=== PATIENT | female | born 1985 | race Caucasian/White ===

== ENCOUNTER 2017-06-15 18:21 | Inpatient (IN) | payer MEDICAID, OTHER ==
[2017-06-15] VITALS (62 sets, daily range): BP systolic 107–174; BP diastolic 55–95; PULSE 62–99; RESP 16–18; TEMP 98
[~2017-06-15] VITALS: Ht 152.4 cm; Wt 88.0 kg
[~2017-06-15 18:21] MED LIST: OXYC1SOL5 PO
--- NOTE | 2017-06-15 19:40 | PD ---
HPI Chief Complaint Contractions, headache, dizzy Date Seen: Jun 15, 2017 Time Seen: 19:36 Travel History International Travel<30 Days: No Contact w/Intl Traveler<30Days: No Known Affected Area: No History of Present Illness HPI 31 years old twin gestation at 32 weeks 1 day comes in complaining of contractions that occurred early this morning but has now resolved. She also had a headache this morning that also resolved and occasional vertigo today. Patient states that she was checked in the office with a transvaginal or transperineal ultrasound and the ultrasound documented that her cervix was open to 3 cm. This was not a cervical exam digitally. Patient had a normal antepartum course until 1 week ago when her blood pressure was elevated in the office and she performed a 24-hour urine protein and blood work as an outpatient that was turned in yesterday. Her headache resolved on its own without treatment. Weeks Gestation: 32 Para: 1 : 4 History Past Medical History Narrative Medical Hypothyroid Obstetric History Obstetric History section at term 2 years ago Past Surgical History Narrative Surgical Cholecystectomy Ovarian cystectomy section Family History Family History: Negative Social History Alcohol Use: No Tobacco Use: No Substance Abuse: No Allergies-Medications (Allergen,Severity, Reaction): Coded Allergies: No Known Allergies (Unverified , 06/20/15) Home Meds Active Scripts Oxycodone W/ Acetaminophen (Oxycodone/Acetaminophen 5-325 mg/5Ml) 5 mg/325 mg Tab, 2 TAB PO Q4H Y for PAIN SCALE 6 TO 10, #30 TAB Prov:Jeanie Saul MD 06/23/15 Review of Systems Except as stated in HPI: all other systems reviewed are Neg Physical Exam Narrative GENERAL: Well-nourished, well-developed patient. SKIN: Warm and dry. HEAD: Normocephalic and atraumatic. EYES: No scleral icterus. No injection or drainage. ENT: No nasal drainage noted. Mucous membranes pink. Airway patent. NECK: Supple, trachea midline. No JVD. CARDIOVASCULAR: Regular rate and rhythm without murmurs, gallops, or rubs. RESPIRATORY: Breath sounds equal bilaterally. No accessory muscle use. ABDOMEN/GI: Abdomen soft, non-tender, bowel sounds present, no rebound, no guarding Gravid to [40-] weeks size Fundal Height: [-] GENITOURINARY: External Genitalia: intact and normal in appearance BUS glands: [-] Normal Cervix: [-] Posterior Dilatation: [-] 1 Effacement: [-] Long Station: [-] High Presentation: [-] Vertex Membranes: [intact or ruptured] intact Uterine Contractions: [-] Occasional FHT's: Category: [-] 1 Baseline: [-] 135, 140 Reactive: [-] mod x 2 Variability: [-] mod x 2 Decels: [-]absent EXTREMITIES: 2+ LE edema BACK: Nontender without obvious deformity. No CVA tenderness. NEUROLOGICAL: Awake and alert. Motor and sensory grossly within normal limits. Five out of 5 muscle strength in all muscle groups. Normal speech. Data Data Vital Signs Reviewed: Yes Orders Orders Vital Signs (Adult) .ON ADMISSION (06/15/17 19:33) ^ Labor Status (06/15/17 19:33) Urinalysis - C+S If Indicated (06/15/17 19:33) ^ Non Stress Test (06/15/17 19:33) Diet Liquid (06/16/17 Breakfast) Cbc No Diff, Includes Plts (06/15/17 19:33) Comprehensive Metabolic Panel (06/15/17 19:33) Uric Acid (06/15/17 19:33) Protein Creat Ratio, Random Ur (06/15/17 19:33) MDM Medical Record Reviewed: Yes Plan 31-year-old who is at 32 weeks with twin gestation Continued observation and triage notes worsening blood pressure and labetalol was given 20 mg IV Patient will be brought in for treatment of hypertension, continued workup, betamethasone, ultrasound in the morning Dr. Montes was notified of the patient's admission Diagnosis Diagnosis: Primary Impression: 32 weeks gestation of Additional Impressions: Twin gestation in third trimester Elevated blood pressure affecting in third trimester, antepartum Previous section complicating , antepartum condition or complication Sherin Marshall MD Jun 15, 2017 19:40
[2017-06-15] MEDS ORDERED: LACTATED RINGER'S 1000 ML INJ 1,000 ML IV SCH (19:55)
[2017-06-15] MEDS ORDERED: LABETALOL HCL 100 MG/20 ML VIAL ONE (19:57)
[2017-06-15] MEDS ORDERED: ZOLPIDEM TARTRATE 5 MG TAB PO PRN ×2 (20:00)
[2017-06-15] MEDS ORDERED: BETAMETHASONE SOD PHOS/ACETATE SUSP 30 MG/5 ML VIAL IM SCH (20:00)
[2017-06-15] MEDS ORDERED: ACETAMINOPHEN 325 MG TAB PO PRN ×2 (20:00)
[2017-06-15] MEDS ORDERED: CALCIUM GLUCONATE 10% 1 GM/10 ML VIAL IV PUSH PRN ×3 (20:00→21:15)
[2017-06-15] MEDS ORDERED: ONDANSETRON HCL 4 MG/2 ML VIAL IV PUSH PRN ×2 (20:00)
[2017-06-15] MEDS ORDERED: NIFEdipine 10 MG CAP PO PRN (20:00)
[2017-06-15] MEDS ORDERED: SODIUM CHLORIDE 0.9% FLUSH 10 ML FLUSH IV FLUSH PRN ×4 (20:00→20:15)
[2017-06-15] MEDS ORDERED: ONDANSETRON ODT 4 MG TAB PO PRN (20:00)
[2017-06-15] MEDS ORDERED: LABETALOL HCL 100 MG/20 ML VIAL IV PUSH PRN ×3 (20:15→20:30)
[2017-06-15] MEDS: BETAMETHASONE SOD PHOS/ACETATE SUSP 30 MG/5 ML VIAL IM SCH (20:17)
[2017-06-15] MEDS ORDERED: MAGNESIUM SULFATE 40 GM PREMIX 1,000 ML ONE (20:35)
[2017-06-15] MEDS ORDERED: MAGNESIUM SULFATE 4 GM PREMIX 100 ML ONE (20:35)
[2017-06-15 20:36] LABS: HEMATOCRIT 32.4 % (35.0-46.0); HEMOGLOBIN 10.6 GM/DL (11.6-15.3); MEAN CELL VOLUME 79.7 FL (80.0-100.0); MEAN CORPUSCULAR HEMOGLOBIN 26.1 PG (27.0-34.0); MEAN CORPUSCULAR HGB CONC 32.7 % (32.0-36.0); MEAN PLATELET VOLUME 8.6 FL (7.0-11.0); PLATELET COUNT 272 TH/MM3 (150-450); RED BLOOD COUNT 4.06 MIL/MM3 (4.00-5.30); RED CELL DISTRIBUTION WIDTH 15.3 % (11.6-17.2)
[2017-06-15] MEDS: NIFEdipine 30 MG SUSTAINED RELEASE TAB PO SCH (20:38)
[2017-06-15 20:50] LABS: AMORPHOUS SEDIMENT, URINE RARE; BACTERIA, URINE RARE /hpf; BILIRUBIN, URINE NEG (NEG); BLOOD, URINE TRACE (NEG); GLUCOSE,URINE NEG (NEG); KETONE, URINE NEG (NEG); NITRITE,URINE NEG (NEG); PH, URINE 6.5 (5.0-8.5); SQUAMOUS EPITHELIAL CELL URINE 1 /hpf (0-5); URINE COLOR YELLOW (YELLW/STRAW); URINE LEUKOCYTE ESTERASE NEG (NEG)
[2017-06-15 20:57] LABS: ALBUMIN 2.2 GM/DL (3.4-5.0); ALT (GPT) 26 U/L (10-53); AST (GOT) 36 U/L (15-37); BICARBONATE 18.8 MEQ/L (21.0-32.0); BLOOD UREA NITROGEN 7 MG/DL (7-18); CALCIUM 7.6 MG/DL (8.5-10.1); CHLORIDE 110 MEQ/L (98-107); CREATININE 0.61 MG/DL (0.50-1.00); GLOMERULAR FILTRATION RATE 113 ML/MIN (>89); GLUCOSE,RANDOM 67 MG/DL (74-106); SODIUM (NA) 141 MEQ/L (136-145)
[2017-06-15 21:00] LABS: ALKALINE PHOSPHATASE 301 U/L (45-117); TOTAL BILIRUBIN ADULT 0.3 MG/DL (0.2-1.0); TOTAL PROTEIN 6.3 GM/DL (6.4-8.2)
[2017-06-15] MEDS: SODIUM CHLORIDE 0.9% FLUSH 10 ML FLUSH IV FLUSH SCH (21:00)
[2017-06-15] MEDS ORDERED: SODIUM CHLORIDE 0.9% FLUSH 10 ML FLUSH IV FLUSH SCH ×3 (21:00)
[2017-06-15] MEDS: INSULIN NovoLIN REGULAR SUPPLEMENTAL SCALE SQ SCH (21:00)
[2017-06-15] MEDS ORDERED: MAGNESIUM SULFATE 40 GM PREMIX 1,000 ML IV SCH (21:06)
[2017-06-15] MEDS ORDERED: PREN29TA PO (21:13)
[2017-06-15] MEDS ORDERED: LEVO.2 PO (21:14)
[2017-06-15] MEDS ORDERED: LEVOTHYROXINE SODIUM 200 MCG TAB PO SCH (21:15)
[2017-06-15] MEDS ORDERED: MAGNESIUM SULFATE 4 GM PREMIX 100 ML IV ONE (21:15)
--- NOTE | 2017-06-15 21:28 | HHI.PR ---
[employer] Note Note S: Patient feeling well, headache resolved, no changes in vision, some slight epigastric pressure, no pain, no nausea or vomiting, endorses movement, no contractions, vaginal bleeding or discharge. Patient denies any other known complications to her other than the below listed O: VS: BP current: 130/74, pulse 86, O2 sat 100% on RA Blood pressure range: 130-174/70-83 Exam: exam deferred, patellar DTRs 1+, no clonus bilaterally FHTs: A: 150s, moderate variability, accelerations present, no decelerations B: 150s, moderate variability, accelerations present, no decelerations TOCO: Occasional contraction A/P 31-year-old at 33w1d by stated IVF dating w/ [facility] of of 07/25/2017 admitted for new diagnosis of preeclampsia w/ severe features. 1. IVF Belinda twin gestation: Cat 1 tracing x2 - Continuous EFM and toco at this time - EFW (05/27) = A: 1627g (57%), B: 1697g (62%). Male x2, anterior and posterior placenta - Need records faxed tomorrow when office is open. NICU consulted 2. Preeclampsia with severe features: Based on severe blood pressures and P:C 13.95, HELLP labs WNL, repeat in AM - 24 urine started (pt states returned an outpatient collection yesterday) - s/p IV labetalol x1 and PO Procardia x1, begin Procardia XL 30mg qd, continue to trend BPs - s/p BMZ #1 for FLM, repeat in 24hrs - Begin Mag 4/2 for seizure ppx, no need for Silver unless urine output low, continue mag x 24hrs - Discussed with patient and her partner the plan is for admission and close observation until 34 weeks, they are aware that if she has persistent severe features will move toward delivery at that time. 3. h/o LTCS x1: in 2016 for arrest of descent: plan is for repeat , consented by myself in the room 4. Hypothyroidism: Patient states recently increased from 17 to 200 mcg around 2 weeks ago, continue home Synthroid, TFTs pending. 5. Failed 1hr GTT: Patient was unaware of this, no three-hour done, glucose on CMP normal, will check a.m. fasting and one-hour postprandials tomorrow, medium sliding scale ordered. Will d/c finger sticks if normal tmrw 6. Anemia: T&C x2 Deejay Montes MD Jun 15, 2017 21:28
[2017-06-15] MEDS ORDERED: LIDOCAINE 2% JELLY 5 ML TUBE OTHER PRN (22:30)
[2017-06-16] VITALS (48 sets, daily range): BP systolic 114–153; BP diastolic 64–86; PULSE 74–92; RESP 16–18; TEMP 97.7–98.2
[2017-06-16 05:55] LABS: BASOPHIL % 0.1 % (0.0-2.0); HEMATOCRIT 31.5 % (35.0-46.0); HEMOGLOBIN 10.3 GM/DL (11.6-15.3); LYMPH % 7.3 % (9.0-44.0); LYMPHOCYTE # 0.9 TH/MM3 (1.0-4.8); MEAN CELL VOLUME 79.8 FL (80.0-100.0); MEAN CORPUSCULAR HGB CONC 32.6 % (32.0-36.0); MEAN PLATELET VOLUME 8.2 FL (7.0-11.0); MONOCYTE # 0.1 TH/MM3 (0-0.9); NEUT % 91.6 % (16.0-70.0); PLATELET COUNT 258 TH/MM3 (150-450); RED BLOOD COUNT 3.95 MIL/MM3 (4.00-5.30); RED CELL DISTRIBUTION WIDTH 15.3 % (11.6-17.2)
[2017-06-16] MEDS ORDERED: LEVOTHYROXINE SODIUM 200 MCG TAB PO SCH (06:00)
[2017-06-16] MEDS ORDERED: LEVOTHYROXINE SODIUM 25 MCG TAB PO SCH (06:00)
[2017-06-16] MEDS: LEVOTHYROXINE SODIUM 200 MCG TAB PO SCH (06:10)
[2017-06-16 06:28] LABS: ALBUMIN 2.2 GM/DL (3.4-5.0); BICARBONATE 15.5 MEQ/L (21.0-32.0); CALCIUM 7.1 MG/DL (8.5-10.1); CALCIUM-PROTEIN CORRECTED 7.5 MG/DL (8.5-10.1); CREATININE 0.71 MG/DL (0.50-1.00); TOTAL BILIRUBIN ADULT 0.6 MG/DL (0.2-1.0); TOTAL PROTEIN 6.4 GM/DL (6.4-8.2)
[2017-06-16] MEDS: INSULIN NovoLIN REGULAR SUPPLEMENTAL SCALE SQ SCH ×2 (08:00→12:00)
[2017-06-16] MEDS: SODIUM CHLORIDE 0.9% FLUSH 10 ML FLUSH IV FLUSH SCH ×2 (08:01→21:00)
[2017-06-16] MEDS: NIFEdipine 30 MG SUSTAINED RELEASE TAB PO SCH (08:24)
[2017-06-16] MEDS: MULTIVIT/MIN/PREN/FOL AC/IRON PRENATAL TAB PO SCH (08:24)
[2017-06-16] MEDS: DOCUSATE SODIUM 100 MG CAP PO SCH (08:24)
--- NOTE | 2017-06-16 08:25 | PD.OB.ANTE ---
Subjective Interval History Hospital day 2 IVF di/di boys at 33 2/7 well known to me. Ongoing surveillance of mild increase in BPs ongoing prior to admission with 24 hour urine done earlier this week (results pending). BPs responded well to procardia po and IV labetolol. No contractions and tracings reassuring and c/w magnesium. No contractions. LFTs not worrisome; platelets fine and mild anemia noted recent increase in synthroid (3 weeks ago) but TSH > 8 and again bumped up last night to 225 mcg daily. repeat 24 hour urine for protein is ongoing. Objective Vital Signs Vital Signs Date Time Temp Pulse Resp B/P (MAP) Pulse Ox O2 Delivery O2 Flow Rate FiO2 06/16/17 08:00 79 116/72 (87) 06/16/17 07:00 88 119/78 (92) 06/16/17 06:17 16 06/16/17 06:17 98.2 06/16/17 06:00 84 117/76 (90) 06/16/17 05:00 81 120/76 (91) 06/16/17 04:20 92 06/16/17 04:15 85 06/16/17 04:10 82 06/16/17 04:05 83 06/16/17 04:01 76 129/75 (93) 06/16/17 04:00 79 06/16/17 03:55 82 06/16/17 03:50 83 06/16/17 03:04 16 06/16/17 03:03 98.1 06/16/17 03:00 91 127/78 (94) 06/16/17 02:01 80 127/73 (91) 06/16/17 01:15 16 06/16/17 01:01 86 125/71 (89) 06/16/17 00:55 18 06/16/17 00:41 79 142/82 (102) 06/16/17 00:40 83 06/16/17 00:38 82 145/86 (105) 06/16/17 00:35 90 06/16/17 00:30 82 06/16/17 00:25 86 06/16/17 00:20 86 06/16/17 00:16 131/85 (100) 06/16/17 00:16 82 06/16/17 00:15 83 06/16/17 00:10 81 06/16/17 00:05 80 06/16/17 00:00 79 06/16/17 00:00 79 153/86 (108) 06/15/17 23:55 83 06/15/17 23:50 74 06/15/17 23:46 98.0 77 18 140/79 (99) 06/15/17 23:45 78 06/15/17 23:40 76 06/15/17 23:35 74 06/15/17 23:31 79 138/74 (95) 06/15/17 23:30 78 06/15/17 23:25 72 06/15/17 23:20 76 06/15/17 23:16 78 142/77 (98) 06/15/17 23:15 77 06/15/17 23:10 81 06/15/17 23:05 79 06/15/17 23:04 78 151/84 (106) 06/15/17 23:00 79 06/15/17 23:00 85 156/95 (115) 06/15/17 22:55 85 06/15/17 22:50 76 06/15/17 22:45 74 06/15/17 22:45 18 06/15/17 22:40 80 06/15/17 22:35 79 06/15/17 22:31 80 135/71 (92) 06/15/17 22:30 80 06/15/17 22:25 82 06/15/17 22:20 84 06/15/17 22:16 80 131/73 (92) 06/15/17 22:15 80 06/15/17 22:10 82 06/15/17 22:05 80 06/15/17 22:01 79 127/71 (89) 06/15/17 22:00 82 06/15/17 22:00 16 06/15/17 21:55 82 06/15/17 21:50 84 06/15/17 21:46 84 120/71 (87) 06/15/17 21:45 83 06/15/17 21:40 85 06/15/17 21:35 88 06/15/17 21:33 89 125/68 (87) 06/15/17 21:31 89 107/55 (72) 06/15/17 21:30 92 06/15/17 21:25 121/68 (85) 06/15/17 21:25 88 06/15/17 21:25 92 06/15/17 21:20 94 06/15/17 21:20 113/59 (77) 06/15/17 21:20 93 06/15/17 21:15 91 06/15/17 21:15 93 116/67 (83) 06/15/17 21:10 99 119/68 (85) 06/15/17 21:10 96 06/15/17 21:09 98 112/62 (79) 06/15/17 21:05 94 06/15/17 21:01 91 130/74 (92) 06/15/17 21:00 18 06/15/17 21:00 84 06/15/17 20:55 69 06/15/17 20:54 68 174/86 (115) 06/15/17 20:31 62 167/81 (109) 06/15/17 20:25 68 166/77 (106) 06/15/17 20:24 16 06/15/17 20:21 62 169/76 (107) 06/15/17 20:11 63 154/70 (98) 06/15/17 20:01 67 160/79 (106) 06/15/17 20:00 18 06/15/17 19:46 63 166/83 (110) 06/15/17 19:29 72 158/82 (107) 06/15/17 19:25 68 06/15/17 19:20 71 06/15/17 19:16 68 151/75 (100) Intake & Output 06/16/17 06/16/17 07:00 19:00 Output Total 225 ml Balance -225 ml Output Urine Total 225 ml Lab & Micro Results Test 06/15/17 19:48 06/16/17 04:56 White Blood Count 10.0 TH/MM3 12.0 TH/MM3 Red Blood Count 4.06 MIL/MM3 3.95 MIL/MM3 Hemoglobin 10.6 GM/DL 10.3 GM/DL Hematocrit 32.4 % 31.5 % Mean Corpuscular Volume 79.7 FL 79.8 FL Mean Corpuscular Hemoglobin 26.1 PG 26.0 PG Mean Corpuscular Hemoglobin Concent 32.7 % 32.6 % Red Cell Distribution Width 15.3 % 15.3 % Platelet Count 272 TH/MM3 258 TH/MM3 Mean Platelet Volume 8.6 FL 8.2 FL Urine Color YELLOW Urine Turbidity HAZY Urine pH 6.5 Urine Specific [place] 1.013 Urine Protein 300 mg/dL Urine Glucose (UA) NEG mg/dL Urine Ketones NEG mg/dL Urine Occult Blood TRACE Urine Nitrite NEG Urine Bilirubin NEG Urine Urobilinogen LESS THAN 2.0 MG/DL Urine Leukocyte Esterase NEG Urine RBC 1 /hpf Urine WBC 2 /hpf Urine Squamous Epithelial Cells 1 /hpf Urine Amorphous Sediment RARE Urine Bacteria RARE /hpf Microscopic Urinalysis Comment CULT NOT INDICATED Urine Random Creatinine 58 MG/DL Urine Random Total Protein 809 MG/DL Urine Protein/Creatinine Ratio 13.95 Blood Urea Nitrogen 7 MG/DL 7 MG/DL Creatinine 0.61 MG/DL 0.71 MG/DL Random Glucose 67 MG/DL 112 MG/DL Total Protein 6.3 GM/DL 6.4 GM/DL Albumin 2.2 GM/DL 2.2 GM/DL Calcium Level 7.6 MG/DL 7.1 MG/DL Uric Acid 4.1 MG/DL Alkaline Phosphatase 301 U/L 310 U/L Aspartate Amino Transf (AST/SGOT) 36 U/L 55 U/L Alanine Aminotransferase (ALT/SGPT) 26 U/L 39 U/L Total Bilirubin 0.3 MG/DL 0.6 MG/DL Sodium Level 141 MEQ/L 137 MEQ/L Potassium Level 3.9 MEQ/L 3.6 MEQ/L Chloride Level 110 MEQ/L 107 MEQ/L Carbon Dioxide Level 18.8 MEQ/L 15.5 MEQ/L Anion Gap 12 MEQ/L 15 MEQ/L Estimat Glomerular Filtration Rate 113 ML/MIN 95 ML/MIN Thyroid Stimulating Hormone 3rd Gen 8.940 uIU/ML Urine Opiates Screen NEG Urine Barbiturates Screen NEG Urine Amphetamines Screen NEG Urine Benzodiazepines Screen NEG Urine Cocaine Screen NEG Urine Cannabinoids Screen NEG Neutrophils (%) (Auto) 91.6 % Lymphocytes (%) (Auto) 7.3 % Monocytes (%) (Auto) 1.0 % Eosinophils (%) (Auto) 0.0 % Basophils (%) (Auto) 0.1 % Neutrophils # (Auto) 11.0 TH/MM3 Lymphocytes # (Auto) 0.9 TH/MM3 Monocytes # (Auto) 0.1 TH/MM3 Eosinophils # (Auto) 0.0 TH/MM3 Basophils # (Auto) 0.0 TH/MM3 CBC Comment DIFF FINAL Differential Comment Protein Corrected Calcium 7.5 MG/DL Physical Exam GENERAL: Well-nourished, well-developed patient. CARDIOVASCULAR: Regular rate and rhythm without murmurs, gallops, or rubs. RESPIRATORY: Breath sounds equal bilaterally. No accessory muscle use. ABDOMEN/GI: Abdomen soft, non-tender. fundal height 40 strips somewhat flat due to Mag with no decels EXTREMITIES: No cyanosis but 2+ edema and normoreflexic, non-tender, without signs of DVT. Assessment and Plan Assessment and Plan will decrease Mag to 1 gm per hour and stop tomorrow continue procardia 30 xl daily stop IV labetolol increase activity maintain strict I's and )'s daily iron sequentials stool softener FBS and 2 hour post prandial is fine. Will consider section after neuroprotection and steroids complete Jeanie Saul MD Jun 16, 2017 08:25
[2017-06-16] MEDS: CALCIUM CARBONATE 1.25 GM (CA 500 MG) TAB PO SCH ×2 (10:50→21:00)
[2017-06-16 12:33] LABS: HEMATOCRIT 30.4 % (35.0-46.0); MEAN CELL VOLUME 79.6 FL (80.0-100.0); MEAN CORPUSCULAR HEMOGLOBIN 26.2 PG (27.0-34.0); MEAN CORPUSCULAR HGB CONC 32.9 % (32.0-36.0); PLATELET COUNT 243 TH/MM3 (150-450); RED BLOOD COUNT 3.82 MIL/MM3 (4.00-5.30); RED CELL DISTRIBUTION WIDTH 15.5 % (11.6-17.2); WHITE BLOOD COUNT 9.5 TH/MM3 (4.0-11.0)
[2017-06-16 13:37] LABS: ALBUMIN 2.1 GM/DL (3.4-5.0); BICARBONATE 19.4 MEQ/L (21.0-32.0); CALCIUM 6.7 MG/DL (8.5-10.1); CREATININE 0.65 MG/DL (0.50-1.00); MAGNESIUM 6.5 MG/DL (1.5-2.5); TOTAL BILIRUBIN ADULT 0.5 MG/DL (0.2-1.0); TOTAL PROTEIN 6.3 GM/DL (6.4-8.2)
[2017-06-16 13:51] LABS: CALCIUM-PROTEIN CORRECTED 7.1 MG/DL (8.5-10.1)
--- NOTE | 2017-06-16 15:02 | HHI.PCNN ---
Addendum Remarks Consult Maternal Hx: 31y/o, , female at 33.2 weeks gestation with diagnosis of severe pre- eclampsia. Mother admitted to [facility] on 06/15/17 secondary to contractions with recent h/o headache and vertigo. No recent ultrasound reports available at this time. Maternal risk factors/complications: Hypothyroidism with escalating dose of synthroid Failed 1h GTT, no 3h follow up testing evaluation in progress. Maternal Labs: Blood type: O+ Lab results have been requested from OB office. Maternal Medications: BMS (first dose given 06/15 at 1999) Levothyroxine Magnesium sulfate Procardia PNV Social: Marital status: Discussion: Dr. Carlton met with MOB and FOB to discuss potential delivery secondary to pre-eclampsia. Delivery room management and possible requirement of respiratory support to include CPAP and possible intubation were discussed. Mom is receiving a BMS course. Apnea/Bradycardia spells were explained. The need for IV access and IVF were addressed. Mom desires to breastfeed and was encouraged to start pumping as soon as possible after delivery. Parents were informed that infant will not need antibiotics given that delivery will be for maternal indications. Criteria for oral feeding was discussed and developmental aspects of suck/swallow/breathe coordination. Parents verbalized understanding. . Greater than 50% of the consultation time was spent with the patient. Tessa Braun Jun 16, 2017 15:02
[2017-06-16] MEDS: BETAMETHASONE SOD PHOS/ACETATE SUSP 30 MG/5 ML VIAL IM SCH (20:00)
[2017-06-17] VITALS (35 sets, daily range): BP systolic 121–161; BP diastolic 67–90; PULSE 58–87; RESP 18–20; TEMP 97.5–97.9; O2SAT 99–100
[2017-06-17 00:02] LABS: CREATININE 24 HOUR, URINE 1.05 GM/24HR (0.63-2.50)
[2017-06-17] MEDS: LEVOTHYROXINE SODIUM 200 MCG TAB PO SCH (06:00)
[2017-06-17 07:29] LABS: AUTOMATED NEUTROPHIL # 7.5 TH/MM3 (1.8-7.7); BASOPHIL % 0.2 % (0.0-2.0); HEMATOCRIT 29.1 % (35.0-46.0); HEMOGLOBIN 9.6 GM/DL (11.6-15.3); LYMPH % 10.7 % (9.0-44.0); LYMPHOCYTE # 0.9 TH/MM3 (1.0-4.8); MEAN CELL VOLUME 79.7 FL (80.0-100.0); MEAN CORPUSCULAR HEMOGLOBIN 26.2 PG (27.0-34.0); MEAN CORPUSCULAR HGB CONC 32.8 % (32.0-36.0); MEAN PLATELET VOLUME 8.3 FL (7.0-11.0); MONO % 3.1 % (0.0-8.0); MONOCYTE # 0.3 TH/MM3 (0-0.9); PLATELET COUNT 214 TH/MM3 (150-450); RED BLOOD COUNT 3.65 MIL/MM3 (4.00-5.30); RED CELL DISTRIBUTION WIDTH 15.5 % (11.6-17.2); WHITE BLOOD COUNT 8.8 TH/MM3 (4.0-11.0)
[2017-06-17 07:42] LABS: ALBUMIN 2.1 GM/DL (3.4-5.0); DIRECT BILIRUBIN ADULT 0.1 MG/DL (0.0-0.2)
[2017-06-17 07:45] LABS: INDIRECT BILIRUBIN 0.2 MG/DL (0.0-0.8); TOTAL BILIRUBIN ADULT 0.3 MG/DL (0.2-1.0)
--- NOTE | 2017-06-17 07:54 | PD.OB.ANTE ---
Subjective Interval History Quiet night with no headache, nausea, vomiting, vision changes, RUQT. Good movement x 2 No leaking, bleeding or regular contractions Objective Vital Signs Vital Signs Date Time Temp Pulse Resp B/P (MAP) Pulse Ox O2 Delivery O2 Flow Rate FiO2 06/17/17 07:20 18 06/17/17 07:01 67 133/69 (90) 06/17/17 06:01 66 132/87 (102) 06/17/17 05:01 71 121/76 (91) 06/17/17 04:01 74 129/80 (96) 06/17/17 03:01 76 134/79 (97) 06/17/17 02:01 69 135/73 (93) 06/17/17 01:01 78 127/67 (87) 06/17/17 00:01 72 133/77 (95) 06/16/17 23:01 76 126/65 (85) 06/16/17 22:01 76 124/72 (89) 06/16/17 21:10 80 114/64 (81) 06/16/17 20:01 79 119/71 (87) 06/16/17 19:55 98.0 18 06/16/17 19:16 88 121/68 (85) 06/16/17 18:00 83 129/74 (92) 06/16/17 17:01 77 121/68 (85) 06/16/17 16:00 84 130/75 (93) 06/16/17 15:01 75 121/76 (91) 06/16/17 14:12 78 125/78 (94) 06/16/17 12:01 74 126/74 (91) 06/16/17 11:55 97.7 06/16/17 11:55 17 06/16/17 11:17 81 130/78 (95) 06/16/17 10:00 75 118/72 (87) 06/16/17 09:00 75 121/71 (88) 06/16/17 08:00 79 116/72 (87) Lab & Micro Results Test 06/16/17 12:05 06/16/17 19:48 06/17/17 05:48 White Blood Count 9.5 TH/MM3 Red Blood Count 3.82 MIL/MM3 Hemoglobin 10.0 GM/DL Hematocrit 30.4 % Mean Corpuscular Volume 79.6 FL Mean Corpuscular Hemoglobin 26.2 PG Mean Corpuscular Hemoglobin Concent 32.9 % Red Cell Distribution Width 15.5 % Platelet Count 243 TH/MM3 Mean Platelet Volume 8.0 FL Blood Urea Nitrogen 7 MG/DL Creatinine 0.65 MG/DL Random Glucose 116 MG/DL Total Protein 6.3 GM/DL 6.0 GM/DL Albumin 2.1 GM/DL 2.1 GM/DL Calcium Level 6.7 MG/DL Magnesium Level 6.5 MG/DL Alkaline Phosphatase 288 U/L 259 U/L Aspartate Amino Transf (AST/SGOT) 43 U/L 31 U/L Alanine Aminotransferase (ALT/SGPT) 37 U/L 36 U/L Total Bilirubin 0.5 MG/DL 0.3 MG/DL Sodium Level 138 MEQ/L Potassium Level 4.0 MEQ/L Chloride Level 108 MEQ/L Carbon Dioxide Level 19.4 MEQ/L Anion Gap 11 MEQ/L Estimat Glomerular Filtration Rate 105 ML/MIN Protein Corrected Calcium 7.1 MG/DL Urine Total Volume 24 Hours 2400 ML Urine Creatinine 24 Hour 1.05 GM/24HR Urine Total Protein 24 Hour 4577 MG/24HR Uric Acid 5.0 MG/DL Direct Bilirubin 0.1 MG/DL Indirect Bilirubin 0.2 MG/DL Physical Exam GENERAL: Well-nourished, well-developed patient. CARDIOVASCULAR: Regular rate and rhythm without murmurs, gallops, or rubs. RESPIRATORY: Breath sounds equal bilaterally. No accessory muscle use. ABDOMEN/GI: Abdomen soft, non-tender. FUndus 40 cervix report as 3 cm with twin A breech Category 1 strip x 2 LFTs, platelets normal 24 hour ruine nephrotic range at 4500 mg in 24 ours EXTREMITIES: No cyanosis 3+ pitting edema non-tender, without signs of DVT. Assessment and Plan Assessment and Plan will decrease Mag to 1 gm per hour and stop tomorrow continue procardia 30 xl daily stop IV labetolol increase activity maintain strict I's and )'s daily iron sequentials stool softener FBS and 2 hour post prandial is fine. Will consider section after neuroprotection and steroids complete 06/17/13 7:30 am with the new criteria for pre eclampsia with severe features excluding proteinuria, Blaise does not yet meet the "severe features criteria" clinically both mom and babies appear stable. risk of cord prolapse with dilated cervix and twin A breech expected progression BP elevation and when meets 160 systolic and/or 110 diastolic, or when she complaints of symptoms as above, will proceed with repeat section. close monitoring with no more Mg or procardia and wait for declaration. This has been discussed in detail with blaise and the pros and cons of delivery now vs conservative management reviewed. She is happywith current plan and recognizes change could occur quickly. continue regular diet for now Jeanie Saul MD Jun 17, 2017 07:54
[2017-06-17 08:49] LABS: BANDS 1 % (0-6); CORRECTED NUCLEATED RBC 1 /100 WBC (0-0); LYMPHOCYTES 8 % (9-44); METAMYELOCYTES 1 % (0-1); MONOCYTES 3 % (0-8); NEUTROPHIL # MANUAL DIFF 7.8 TH/MM3 (1.8-7.7); NUCLEATED RED BLOOD CELL 1 (0-0); POLYS (SEG NEUTROPHILS) 87 % (16-70)
[2017-06-17] MEDS: SODIUM CHLORIDE 0.9% FLUSH 10 ML FLUSH IV FLUSH SCH (09:00)
[2017-06-17] MEDS: MULTIVIT/MIN/PREN/FOL AC/IRON PRENATAL TAB PO SCH (09:00)
[2017-06-17] MEDS: POLYETHYLENE GLYCOL 17 GM PKG PO SCH (09:00)
[2017-06-17] MEDS: CALCIUM CARBONATE 1.25 GM (CA 500 MG) TAB PO SCH ×3 (09:00→22:59)
[2017-06-17] MEDS: DOCUSATE SODIUM 100 MG CAP PO SCH ×3 (09:00→21:00)
[2017-06-17] MEDS ORDERED: ONDANSETRON HCL 4 MG/2 ML VIAL IV ONE (12:00)
[2017-06-17] MEDS ORDERED: DEXAMETHASONE SOD PHOS 4 MG/ML VIAL IV ONE (12:00)
[2017-06-17] MEDS ORDERED: OXYTOCIN 10 UNIT/ML AMP IV ONE (12:00)
[2017-06-17] MEDS ORDERED: LACTATED RINGER'S 1000 ML INJ 1,000 ML IV ONE (12:00)
[2017-06-17] MEDS ORDERED: NEOSTIGMINE 3 MG/3 ML SYR IV ONE (12:00)
--- NOTE | 2017-06-17 17:06 | PD.PN.STU ---
Subjective Remarks 31 yo at 33 weeks 3 days with twins by IVF, hospitalization Day 3. Since noon she has noticed increased bilateral leg swelling and pain, right greater than left. Describes legs as feeling heavy with swelling to above the knees. Feet have been swollen throughout . No erythema, warmth, negative Don sign. Denies nausea/vomiting, headache, contractions, bleeding. Reports good movement. Objective Vitals Vital Signs Date Time Temp Pulse Resp B/P (MAP) Pulse Ox O2 Delivery O2 Flow Rate FiO2 06/17/17 14:21 18 06/17/17 14:09 80 137/76 (96) 06/17/17 11:00 18 06/17/17 10:14 79 133/80 (97) 06/17/17 09:00 18 06/17/17 08:01 67 133/84 (100) 06/17/17 07:46 97.9 06/17/17 07:20 18 06/17/17 07:01 67 133/69 (90) 06/17/17 06:01 66 132/87 (102) 06/17/17 05:01 71 121/76 (91) 06/17/17 04:01 74 129/80 (96) 06/17/17 03:01 76 134/79 (97) 06/17/17 02:01 69 135/73 (93) 06/17/17 01:01 78 127/67 (87) 06/17/17 00:01 72 133/77 (95) 06/16/17 23:01 76 126/65 (85) 06/16/17 22:01 76 124/72 (89) 06/16/17 21:10 80 114/64 (81) 06/16/17 20:01 79 119/71 (87) 06/16/17 19:55 98.0 18 06/16/17 19:16 88 121/68 (85) 06/16/17 18:00 83 129/74 (92) 06/16/17 17:01 77 121/68 (85) I/O 06/16/17 06/16/17 06/16/17 06/17/17 06/17/17 06/17/17 07:00 15:00 23:00 07:00 15:00 23:00 Output Total 225 ml Balance -225 ml Output Urine Total 225 ml Result Diagram: 4/12/18 0548 06/16/17 1205 Other Results GENERAL: Well-nourished, well-developed patient. CARDIOVASCULAR: Regular rate and rhythm without murmurs, gallops, or rubs. RESPIRATORY: Breath sounds equal bilaterally. No accessory muscle use. ABDOMEN/GI: Abdomen soft, non-tender. Fundus: [-] GENITOURINARY: External Genitalia: intact and normal in appearance Cervix: [-] Dilatation: [-] Effacement: [-] Station: [-] Presentation: [-] Membranes: [-] Uterine Contractions: [-] FHT's: Category: [-] Baseline: [-] Reactive: [-] Variability: [-] Decels: [-] EXTREMITIES: 2+bilateral edema from feet to mid thighs. A/P Assessment and Plan 31yo at 33weeks 3 days 1. Third trimester 2. Twin by IVF 3. Bilateral leg edema, right greater than left 4. History of elevated blood pressures 5. Proteinuria--nephrotic levels 6. Anemia Hilda Jones Jun 17, 2017 17:06 Jeanie Saul MD Jun 17, 2017 19:38
[2017-06-17] MEDS ORDERED: CITRIC ACID-SODIUM CITRATE LIQ 30 ML UDC ONE (18:12)
[2017-06-17] MEDS ORDERED: ACETAMINOPHEN 1000 MG/100 ML 100 ML IV ONE ×2 (18:17→19:45)
[2017-06-17] MEDS ORDERED: MORPHINE SULFATE PF 5 MG/10 ML VIAL ONE ×2 (18:17→18:18)
[2017-06-17] MEDS ORDERED: CLINDAMYCIN PHOS 600 MG/4 ML VIAL ONE (18:17)
--- NOTE | 2017-06-17 18:28 | PD.OB.ANTE ---
Subjective Interval History This afternoon developed right abdominal and pelvic pain with radiation down right thigh which is now swollen more so than left. increasing nausea. mild headache Antepartum ROS: Denies: New complaints, Loss of fluid, Vaginal bleeding, movement normal, Contractions, Other Objective Vital Signs Vital Signs Date Time Temp Pulse Resp B/P (MAP) Pulse Ox O2 Delivery O2 Flow Rate FiO2 06/17/17 17:56 97.9 18 06/17/17 17:55 81 06/17/17 17:50 81 06/17/17 17:45 78 06/17/17 17:40 85 06/17/17 17:35 82 06/17/17 17:31 85 148/76 (100) 06/17/17 17:30 86 06/17/17 17:25 78 153/76 (101) 06/17/17 17:25 87 06/17/17 17:22 80 155/80 (105) 06/17/17 17:20 80 06/17/17 17:18 85 161/90 (113) 06/17/17 16:50 72 160/82 (108) 06/17/17 14:21 18 06/17/17 14:09 80 137/76 (96) 06/17/17 11:00 18 06/17/17 10:14 79 133/80 (97) 06/17/17 09:00 18 06/17/17 08:01 67 133/84 (100) 06/17/17 07:46 97.9 06/17/17 07:20 18 06/17/17 07:01 67 133/69 (90) 06/17/17 06:01 66 132/87 (102) 06/17/17 05:01 71 121/76 (91) 06/17/17 04:01 74 129/80 (96) 06/17/17 03:01 76 134/79 (97) 06/17/17 02:01 69 135/73 (93) 06/17/17 01:01 78 127/67 (87) 06/17/17 00:01 72 133/77 (95) 06/16/17 23:01 76 126/65 (85) 06/16/17 22:01 76 124/72 (89) 06/16/17 21:10 80 114/64 (81) 06/16/17 20:01 79 119/71 (87) 06/16/17 19:55 98.0 18 06/16/17 19:16 88 121/68 (85) Lab & Micro Results Test 06/16/17 19:48 06/17/17 05:48 Urine Total Volume 24 Hours 2400 ML Urine Creatinine 24 Hour 1.05 GM/24HR Urine Total Protein 24 Hour 4577 MG/24HR White Blood Count 8.8 TH/MM3 Red Blood Count 3.65 MIL/MM3 Hemoglobin 9.6 GM/DL Hematocrit 29.1 % Mean Corpuscular Volume 79.7 FL Mean Corpuscular Hemoglobin 26.2 PG Mean Corpuscular Hemoglobin Concent 32.8 % Red Cell Distribution Width 15.5 % Platelet Count 214 TH/MM3 Mean Platelet Volume 8.3 FL Neutrophils (%) (Auto) 86.0 % Lymphocytes (%) (Auto) 10.7 % Monocytes (%) (Auto) 3.1 % Eosinophils (%) (Auto) 0.0 % Basophils (%) (Auto) 0.2 % Neutrophils # (Auto) 7.5 TH/MM3 Lymphocytes # (Auto) 0.9 TH/MM3 Monocytes # (Auto) 0.3 TH/MM3 Eosinophils # (Auto) 0.0 TH/MM3 Basophils # (Auto) 0.0 TH/MM3 CBC Comment AUTO DIFF Differential Total Cells Counted 100 Neutrophils % (Manual) 87 % Band Neutrophils % 1 % Lymphocytes % 8 % Monocytes % 3 % Neutrophils # (Manual) 7.8 TH/MM3 Metamyelocytes 1 % Nucleated Red Blood Cells 1 /100 WBC Differential Comment FINAL DIFF MANUAL Platelet Estimate NORMAL Platelet Morphology Comment NORMAL Uric Acid 5.0 MG/DL Total Bilirubin 0.3 MG/DL Direct Bilirubin 0.1 MG/DL Indirect Bilirubin 0.2 MG/DL Aspartate Amino Transf (AST/SGOT) 31 U/L Alanine Aminotransferase (ALT/SGPT) 36 U/L Alkaline Phosphatase 259 U/L Total Protein 6.0 GM/DL Albumin 2.1 GM/DL Physical Exam GENERAL: Looking anxious and ill systolic 160 diastolic 82 CARDIOVASCULAR: Regular rate and rhythm without murmurs, gallops, or rubs. RESPIRATORY: Breath sounds equal bilaterally. No accessory muscle use. ABDOMEN/GI: Abdomen soft, non-tender. Fundus: 41 babies reactive with accelerations EXTREMITIES increasing edema Assessment and Plan Assessment and Plan will decrease Mag to 1 gm per hour and stop tomorrow continue procardia 30 xl daily stop IV labetolol increase activity maintain strict I's and )'s daily iron sequentials stool softener FBS and 2 hour post prandial is fine. Will consider section after neuroprotection and steroids complete 06/17/13 7:30 am with the new criteria for pre eclampsia with severe features excluding proteinuria, Blaise does not yet meet the "severe features criteria" clinically both mom and babies appear stable. risk of cord prolapse with dilated cervix and twin A breech expected progression BP elevation and when meets 160 systolic and/or 110 diastolic, or when she complaints of symptoms as above, will proceed with repeat section. close monitoring with no more Mg or procardia and wait for declaration. This has been discussed in detail with blaise and the pros and cons of delivery now vs conservative management reviewed. She is happywith current plan and recognizes change could occur quickly. continue regular diet for now 06/17/17 6:30 meets criteria for pre eclampsia with severe features surveillance reassuring platelets normal babies breech and transverse received labatelol per protocol with diastolic of 160 ate 3 1/2 hours ago-- anethesia aware. discussed with neonatology and once here will section all aware Jeanie Saul MD Jun 17, 2017 18:28
[2017-06-17] MEDS ORDERED: CITRIC ACID-SODIUM CITRATE LIQ 30 ML UDC PO SCH (18:30)
[2017-06-17] MEDS ORDERED: CLINDAMYCIN 600 MG/NS 100 ML IV SCH ×2 (18:30)
[2017-06-17] MEDS ORDERED: LACTATED RINGER'S 1000 ML IV SCH (18:30)
[2017-06-17] MEDS ORDERED: LACTATED RINGER'S 1000 ML IV ONE (18:30)
[2017-06-17] MEDS ORDERED: LABETALOL HCL 100 MG/20 ML VIAL IV ONE (18:45)
[2017-06-17] MEDS ORDERED: EPIDURAL-NO SYSTEMIC NARCOTICS PRN (19:00)
[2017-06-17] MEDS ORDERED: EPIDURAL-DIPHENHYDRAMINE HCL 50 MG/ML VIAL IV PUSH PRN (19:00)
[2017-06-17] MEDS ORDERED: EPIDURAL-DO NOT ADMINISTER ANTICOAGULANTS PRN (19:00)
[2017-06-17] MEDS ORDERED: EPIDURAL-DIPHENHYDRAMINE HCL 50 MG CAP PO PRN (19:00)
[2017-06-17] MEDS ORDERED: EPIDURAL-NALOXONE HCL 0.4 MG/ML AMP IV PUSH PRN (19:00)
--- NOTE | 2017-06-17 19:40 | PD.OB.DELI ---
Procedure Note Section Procedure Pre Op Diagnosis: (1) Twin gestation in third trimester (2) Elevated blood pressure affecting in third trimester, antepartum (3) Previous section complicating , antepartum condition or complication Post Op Diagnosis: (1) delivery due to previous difficult delivery, delivered, current hospitalization Performed by Jeanie Saul Procedure: Repeat Low Transverse Sec Indication for delivery: Maternal medical problems Informed consent obtained: For anesthesia, For procedure Confirmed correct: Patient, Procedure, Site, Time-out taken Anesthesia: Spinal Medication prior to procedure: As documented in eMAR Monitoring during procedure: Blood pressure monitoring, doppler, Pulse oximetry Urinary catheter: Inserted using sterile technique, To dependent drainage Sterile preparation: Duraprep, In usual fashion, With 2% chlorexidine ( Hibiclens) Position: Supine with wedge to right side Operative Features Skin Incision: Pfannenstiel Uterine Incision: Low transverse w/knife / blunt ext Membranes Ruptured: Artificially Presentation: Breech, Transverse lie Delivery date: Jun 17, 2017 Delivery time: 19:39 Delivery of infant: Assisted : Male, Multiple One Minute : 7, 8 Five Minute : 8, 9 Status of infant: Viable, Cord blood, Nursery present Placenta delivered: Intact Medications: Antibiotics, Oxytocin Estimated blood loss: 500 Maternal Condition: Stable Condition: Stable (dictated) Jeanie Saul MD Jun 17, 2017 19:40
[2017-06-17] MEDS ORDERED: OXYTOCIN 30 UNITS-500ML PREMIX 500 ML IV ONE (19:45)
[2017-06-17] MEDS ORDERED: DOCUSATE SODIUM 50 MG/SENNA 8.6 MG TAB PO PRN (19:45)
[2017-06-17] MEDS ORDERED: ONDANSETRON HCL 4 MG/2 ML VIAL IV PUSH PRN (19:45)
[2017-06-17] MEDS ORDERED: SODIUM CHLORIDE 0.9% FLUSH 10 ML FLUSH IV FLUSH PRN (19:45)
[2017-06-17] MEDS ORDERED: ZOLPIDEM TARTRATE 5 MG TAB PO PRN (19:45)
[2017-06-17] MEDS ORDERED: oxyCODONE/ACETAMINOPHEN 5 MG/325 MG TAB PO PRN (19:45)
[2017-06-17] MEDS ORDERED: SIMETHICONE 80 MG CHEWABLE TAB PO PRN (19:45)
--- NOTE | 2017-06-17 20:32 | MP ---
cc: Jeanie Saul MD DATE OF OPERATION: PREOPERATIVE DIAGNOSES: A 33 and 5/7 weeks twin intrauterine with preeclampsia with severe features, previous section. POSTOPERATIVE DIAGNOSES: A 33 and 5/7 weeks twin intrauterine with preeclampsia with severe features, previous section. PROCEDURE PERFORMED: Repeat low transverse segment section. ANESTHESIA: Spinal with Duramorph. SURGEON: Jenaie Saul MD MATTRESS RENOVATOR: Hilda Jones, MS3 FINDINGS: Ioana had nephrotic levels of protein at 4500 grams, a systolic blood pressure of 160, headache and right-sided pain. She was appraised of the indications for delivery. DESCRIPTION OF PROCEDURE: She was taken to the operating room. She was administered spinal with Duramorph confirming normal platelets first she was prepped and draped in the usual sterile fashion. A timeout was performed with all in attendance. She had received clindamycin 600 mg. She had a Silver catheter and sequential stockings. After assuring adequate analgesia, a Pfannenstiel incision was made through the skin with a knife and then carried down through with a knife to the rectus muscle. The rectus muscle was taken off the rectus fascia superiorly and inferiorly sharply and with cautery. The midline was entered sharply where the rectus muscle was scarred together and then the parietal peritoneum was entered sharply with care to avoid underlying structures. A bladder blade was placed to protect the bladder. The uterus was palpated. The first baby was felt to be a complete breech and a low transverse incision was made and the feet were gently grasped and the baby was rotated to sacrum anterior with the classic Pinard maneuvers to bring the arms to the midline. The 's head was extended, and the nuchal cord x 1, so some manipulation was necessary to bring him out gently. His Apgars were 7 at one and 8 at five and he had an excellent cry and good tone on the abdomen. Cord clamping was delayed 45 seconds and then he was handed to the talent manager and attending. The second baby was then palpated with the intact sac, noted to be transverse lie with small parts down. The sac was ruptured and the head spontaneously came down so with fundal pressure the was delivered from cephalic position and again his cord was clamped after 45 second delay, cut, and he was handed to the neonatology team in attending. His Apgars were 8 and 9. The placenta was then delivered manually intact with 2 cords each with 3 vessels. It will be sent to ____ for harvesting. The uterus was gently exteriorized, cleaned with a lap sponge and without any significant bleeding. It was closed with chromic in a running interlocking fashion and then a second horizontal imbricating layer well above the bladder. Tubes and ovaries appeared unremarkable and it is not apparent what the primary source of infertility is. After the second layer, hemostasis was assessed and the uterus was placed in the abdominal cavity, and copious irrigation was performed. The rectus muscle was reapproximated gently with Vicryl. The fascia was closed, then with 1 Vicryl in a running fashion. The subcutaneous layer was closed with 3-0 plain and the skin was closed with 4-0 Vicryl on a Eber needle. Sponge, instrument and needle counts correct. Mom and babies tolerated the procedure well. Jeanie Saul MD PPC/rt , 07:45 PM , 08:31 PM
[2017-06-17] MEDS ORDERED: SODIUM CHLORIDE 0.9% FLUSH 10 ML FLUSH IV FLUSH SCH (21:00)
[2017-06-17] MEDS: INSULIN NovoLIN REGULAR SUPPLEMENTAL SCALE SQ SCH (21:00)
[2017-06-17] MEDS ORDERED: IRON SUCROSE INJ 200 MG in SODIUM CHLORIDE 0.9% INJ 100 ML IV ONE (21:00)
[2017-06-18 00:22] VITALS: BP 173/83; PULSE 62; RESP 18; TEMP 97.8
[2017-06-18] MEDS ORDERED: LACTATED RINGER'S 1000 ML INJ 1,000 ML IV SCH (00:45)
[2017-06-18] MEDS ORDERED: OXYTOCIN 30 UNITS-500ML PREMIX 500 ML IV PRN (00:45)
[2017-06-18] MEDS: ACETAMINOPHEN 1000 MG/100 ML 100 ML IV SCH ×2 (03:00→10:15)
[2017-06-18 03:53] VITALS: BP 157/83; PULSE 53; RESP 18; TEMP 97.8
[2017-06-18 05:57] LABS: AUTOMATED NEUTROPHIL # 13.1 TH/MM3 (1.8-7.7); BASOPHIL % 0.1 % (0.0-2.0); HEMATOCRIT 28.9 % (35.0-46.0); HEMOGLOBIN 9.3 GM/DL (11.6-15.3); LYMPH % 8.1 % (9.0-44.0); LYMPHOCYTE # 1.3 TH/MM3 (1.0-4.8); MEAN CORPUSCULAR HGB CONC 32.1 % (32.0-36.0); MEAN PLATELET VOLUME 8.6 FL (7.0-11.0); MONO % 6.5 % (0.0-8.0); NEUT % 85.3 % (16.0-70.0); PLATELET COUNT 189 TH/MM3 (150-450); RED BLOOD COUNT 3.57 MIL/MM3 (4.00-5.30); RED CELL DISTRIBUTION WIDTH 15.2 % (11.6-17.2); WHITE BLOOD COUNT 15.4 TH/MM3 (4.0-11.0)
[2017-06-18] MEDS: LEVOTHYROXINE SODIUM 100 MCG TAB PO SCH (06:04)
[2017-06-18] MEDS: LEVOTHYROXINE SODIUM 25 MCG TAB PO SCH (06:04)
[2017-06-18 06:24] LABS: ALBUMIN 1.9 GM/DL (3.4-5.0); ALT (GPT) 35 U/L (10-53); AST (GOT) 32 U/L (15-37); DIRECT BILIRUBIN ADULT 0.1 MG/DL (0.0-0.2)
[2017-06-18 06:26] LABS: ALKALINE PHOSPHATASE 230 U/L (45-117); TOTAL BILIRUBIN ADULT 0.1 MG/DL (0.2-1.0); TOTAL PROTEIN 5.4 GM/DL (6.4-8.2)
--- NOTE | 2017-06-18 07:26 | HHI.OB ---
Subjective Post Operative Day: 1 Remarks doing very well with no complaints received venofir Objective Vitals/I&O Vital Signs Date Time Temp Pulse Resp B/P (MAP) Pulse Ox O2 Delivery O2 Flow Rate FiO2 06/18/17 03:53 97.8 53 18 157/83 (107) 06/18/17 00:22 97.8 62 18 173/83 (113) 06/17/17 21:50 97.5 65 18 157/85 (109) 06/17/17 20:34 58 18 99 06/17/17 20:34 146/74 (98) 06/17/17 20:15 63 18 138/74 (95) 100 06/17/17 20:11 58 134/69 (90) 06/17/17 20:11 18 100 06/17/17 19:53 68 131/77 (95) 06/17/17 19:53 18 100 06/17/17 19:30 97.7 75 20 121/71 (88) 100 06/17/17 17:56 97.9 18 06/17/17 17:55 81 06/17/17 17:50 81 06/17/17 17:45 78 06/17/17 17:40 85 06/17/17 17:35 82 06/17/17 17:31 85 148/76 (100) 06/17/17 17:30 86 06/17/17 17:25 78 153/76 (101) 06/17/17 17:25 87 06/17/17 17:22 80 155/80 (105) 06/17/17 17:20 80 06/17/17 17:18 85 161/90 (113) 06/17/17 16:50 72 160/82 (108) 06/17/17 14:21 18 06/17/17 14:09 80 137/76 (96) 06/17/17 11:00 18 06/17/17 10:14 79 133/80 (97) 06/17/17 09:00 18 06/17/17 08:01 67 133/84 (100) 06/17/17 07:46 97.9 Result Diagram: 06/18/17 3035 06/16/17 1207 Objective Remarks GENERAL: Well-nourished, well-developed patient. CARDIOVASCULAR: Regular rate and rhythm without murmurs, gallops, or rubs. RESPIRATORY: Breath sounds equal bilaterally. No accessory muscle use. ABDOMEN/GI: Abdomen soft, non-tender, bowel sounds present. Incision: Clean, dry and intact. Fundus: Firm, non-tender at umbilicus. GENITOURINARY: Light to moderate bleeding. EXTREMITIES: No cyanosis or edema, non-tender, without signs of DVT. Medications and IVs Current Medications Medications (Trade) Dose Ordered Sig/Kiran Route Start Time Stop Time Status Last Admin (Stuartnatal Plus 3 ) 1 tab DAILY PO 06/16/17 09:00 06/17/17 09:00 (Trandate Inj) 40 mg NOW PRN IV PUSH 06/15/17 20:15 (Trandate Inj) 80 mg NOW PRN IV PUSH 06/15/17 20:30 (Tylenol) 650 mg Q4H PRN PO 06/15/17 20:00 (Zofran Odt) 4 mg Q6H PRN PO 06/15/17 20:00 (NovoLIN R SUPPLEMENTAL SCALE) 1 ACHS SLIDING SCALE SQ 06/15/17 21:00 (Calcium Gluconate Inj) 1 gm UNSCH PRN IV PUSH 06/15/17 21:15 (Xylocaine 2% Jelly) 1 applic UNSCH PRN OTHER 06/15/17 22:30 (Oscal) 500 mg Q12HR PO 06/16/17 09:00 06/17/17 22:59 (Colace) 100 mg BID PO 06/17/17 09:00 (Miralax) 17 gm DAILY PO 06/17/17 09:00 (Bicitra Liq) 30 ml COIN MACHINE SERVICE REPAIRER PO 06/17/17 18:30 06/20/17 18:29 Clindamycin Phosphate 600 mg/ Sodium Chloride 104 ml @ 208 mls/hr COIN MACHINE SERVICE REPAIRER IV 06/17/17 18:30 Lactated Ringer's 1,000 ml @ 100 mls/hr Q10H IV 06/18/17 00:45 06/18/17 20:44 06/17/17 22:59 Oxytocin 500 ml @ 100 mls/hr UNSCH X1 PRN IV 06/18/17 00:45 06/19/17 00:44 (NS Flush) 2 ml BID IV FLUSH 06/17/17 21:00 (NS Flush) 2 ml UNSCH PRN IV FLUSH 06/17/17 19:45 (Mylicon Chew) 80 mg QID PRN PO 06/17/17 19:45 (Motrin) 600 mg Q6H PRN PO 06/17/17 19:45 (Percocet 5-325 Mg) 1 tab Q4H PRN PO 06/17/17 19:45 (Percocet 5-325 Mg) 2 tab Q4H PRN PO 06/17/17 19:45 (Rachelle-Colace) 2 tab Q12H PRN PO 06/17/17 19:45 (Ambien) 5 mg HS PRN PO 06/17/17 19:45 (M-M-R Ii Inj) 0.5 ml ONCE ONCE SQ 06/18/17 16:00 06/18/17 16:01 (Boostrix Inj) 0.5 ml ONCE ONCE IM 06/18/17 16:00 06/18/17 16:01 (Zofran Inj) 4 mg Q6H PRN IV PUSH 06/17/17 19:45 Miscellaneous Information NO SYSTEMIC NARCOTICS TO BE GIVEN FO... UNSCH PRN .XX 06/17/17 19:00 06/18/17 18:59 (Narcan Inj) 0.4 mg UNSCH PRN IV PUSH 06/17/17 19:00 06/18/17 18:59 (Benadryl Inj) 25 mg Q6H PRN IV PUSH 06/17/17 19:00 06/18/17 18:59 06/18/17 00:17 (Benadryl) 50 mg Q6H PRN PO 06/17/17 19:00 06/18/17 18:59 Miscellaneous Information ALL NURSING DEPARTMENTS UNSCH PRN .XX 06/17/17 19:00 06/18/17 18:59 Acetaminophen 100 ml @ 400 mls/hr Q8H IV 06/18/17 03:00 06/18/17 11:14 06/18/17 03:00 (Synthroid) 200 mcg DAILY@0600 PO 06/18/17 06:00 06/18/17 06:04 (Synthroid) 25 mcg DAILY@0600 PO 06/18/17 06:00 06/18/17 06:04 Assessment/Plan Assessment and Plan will decrease Mag to 1 gm per hour and stop tomorrow continue procardia 30 xl daily stop IV labetolol increase activity maintain strict I's and )'s daily iron sequentials stool softener FBS and 2 hour post prandial is fine. Will consider section after neuroprotection and steroids complete 06/17/13 7:30 am with the new criteria for pre eclampsia with severe features excluding proteinuria, Blaise does not yet meet the "severe features criteria" clinically both mom and babies appear stable. risk of cord prolapse with dilated cervix and twin A breech expected progression BP elevation and when meets 160 systolic and/or 110 diastolic, or when she complaints of symptoms as above, will proceed with repeat section. close monitoring with no more Mg or procardia and wait for declaration. This has been discussed in detail with blaise and the pros and cons of delivery now vs conservative management reviewed. She is happywith current plan and recognizes change could occur quickly. continue regular diet for now 06/17/17 6:30 meets criteria for pre eclampsia with severe features surveillance reassuring platelets normal babies breech and transverse received labatelol per protocol with diastolic of 160 ate 3 1/2 hours ago-- anethesia aware. discussed with neonatology and once here will section all aware POD 1 received venofir ambulating and doing well solucortef for itching from duramorph not helped with Jeanie Yuan MD Jun 18, 2017 07:26
[2017-06-18] MEDS ORDERED: HYDROCORTISONE SOD SUCCINATE 100 MG VIAL IV PUSH ONE (07:30)
[2017-06-18 07:49] LABS: BANDS 2 % (0-6); CORRECTED NUCLEATED RBC 3 /100 WBC (0-0); LYMPHOCYTES 2 % (9-44); METAMYELOCYTES 2 % (0-1); MONOCYTES 3 % (0-8); NEUTROPHIL # MANUAL DIFF 14.6 TH/MM3 (1.8-7.7); NUCLEATED RED BLOOD CELL 3 (0-0); POLYS (SEG NEUTROPHILS) 91 % (16-70)
[2017-06-18 08:00] VITALS: BP 158/87; PULSE 50; RESP 20; TEMP 97.8
[2017-06-18] MEDS: INSULIN NovoLIN REGULAR SUPPLEMENTAL SCALE SQ SCH ×3 (08:00→17:00)
[2017-06-18] MEDS: POLYETHYLENE GLYCOL 17 GM PKG PO SCH (09:57)
[2017-06-18] MEDS: DOCUSATE SODIUM 100 MG CAP PO SCH ×2 (09:58→21:06)
[2017-06-18] MEDS: MULTIVIT/MIN/PREN/FOL AC/IRON PRENATAL TAB PO SCH (09:58)
[2017-06-18] MEDS: CALCIUM CARBONATE 1.25 GM (CA 500 MG) TAB PO SCH ×2 (09:58→21:06)
[2017-06-18 12:00] VITALS: BP 144/85; PULSE 74; RESP 20; TEMP 98
[2017-06-18] MEDS: IBUPROFEN 600 MG TAB PO PRN ×2 (12:56→21:06)
[2017-06-18 16:00] VITALS: BP 151/72; PULSE 64; RESP 18; TEMP 97.8
[2017-06-18] MEDS ORDERED: DIPHTH/TETANUS/ACEL PERTUSSIS (BOOSTER) 0.5 ML VIAL/PFS IM ONE (16:00)
[2017-06-18] MEDS ORDERED: MEASLES, MUMPS, RUBELLA VACCINE 0.5 ML VIAL SQ ONE (16:00)
[2017-06-18 16:06] LABS: HEMOGLOBIN A1C 5.4 % (4.3-6.0)
[2017-06-18 20:00] VITALS: BP 156/82; PULSE 73; RESP 18; TEMP 98.2
[2017-06-18] MEDS: oxyCODONE/ACETAMINOPHEN 5 MG/325 MG TAB PO PRN (23:23)
[2017-06-19] VITALS (9 sets, daily range): BP systolic 133–157; BP diastolic 69–97; PULSE 16–96; RESP 16–18; TEMP 97.8–98.3
[2017-06-19] MEDS: IBUPROFEN 600 MG TAB PO PRN ×3 (05:45→21:15)
[2017-06-19] MEDS: LEVOTHYROXINE SODIUM 100 MCG TAB PO SCH (05:45)
[2017-06-19] MEDS: LEVOTHYROXINE SODIUM 25 MCG TAB PO SCH (05:46)
[2017-06-19] MEDS: INSULIN NovoLIN REGULAR SUPPLEMENTAL SCALE SQ SCH ×4 (08:00→21:00)
[2017-06-19] MEDS: POLYETHYLENE GLYCOL 17 GM PKG PO SCH (08:32)
[2017-06-19] MEDS: CALCIUM CARBONATE 1.25 GM (CA 500 MG) TAB PO SCH ×2 (08:32→21:15)
[2017-06-19] MEDS: DOCUSATE SODIUM 100 MG CAP PO SCH ×2 (08:32→21:15)
[2017-06-19] MEDS: MULTIVIT/MIN/PREN/FOL AC/IRON PRENATAL TAB PO SCH (08:32)
--- NOTE | 2017-06-19 16:26 | HHI.OB ---
Subjective Post Operative Day: 2 Remarks Doing well Tolerating diet well Pain is well controlled Baby is doing well. Objective Vitals/I&O Vital Signs Date Time Temp Pulse Resp B/P (MAP) Pulse Ox O2 Delivery O2 Flow Rate FiO2 06/19/17 12:15 97.9 96 18 133/91 (105) 06/19/17 10:28 98.0 06/19/17 09:00 97.8 06/19/17 08:32 98.0 16 18 155/90 (111) 06/19/17 06:00 98.0 79 18 155/85 (108) 06/19/17 04:00 98.3 67 18 157/82 (107) 06/18/17 20:00 18 06/18/17 20:00 73 156/82 (106) 06/18/17 20:00 98.2 Result Diagram: 06/18/17 0503 06/16/17 1205 Objective Remarks GENERAL: Well-nourished, well-developed patient. CARDIOVASCULAR: Regular rate and rhythm without murmurs, gallops, or rubs. RESPIRATORY: Breath sounds equal bilaterally. No accessory muscle use. ABDOMEN/GI: Abdomen soft, non-tender, bowel sounds present. Incision: Clean, dry and intact. Fundus: Firm, non-tender at umbilicus. GENITOURINARY: Light to moderate bleeding. EXTREMITIES: No cyanosis or edema, non-tender, without signs of DVT. Medications and IVs Current Medications Medications (Trade) Dose Ordered Sig/Kiran Route Start Time Stop Time Status Last Admin (Stuartnatal Plus 3 ) 1 tab DAILY PO 06/16/17 09:00 06/19/17 08:32 (Trandate Inj) 40 mg NOW PRN IV PUSH 06/15/17 20:15 (Trandate Inj) 80 mg NOW PRN IV PUSH 06/15/17 20:30 (Tylenol) 650 mg Q4H PRN PO 06/15/17 20:00 (Zofran Odt) 4 mg Q6H PRN PO 06/15/17 20:00 (NovoLIN R SUPPLEMENTAL SCALE) 1 ACHS SLIDING SCALE SQ 06/15/17 21:00 (Calcium Gluconate Inj) 1 gm UNSCH PRN IV PUSH 06/15/17 21:15 (Xylocaine 2% Jelly) 1 applic UNSCH PRN OTHER 06/15/17 22:30 (Oscal) 500 mg Q12HR PO 06/16/17 09:00 06/19/17 08:32 (Colace) 100 mg BID PO 06/17/17 09:00 06/19/17 08:32 (Miralax) 17 gm DAILY PO 06/17/17 09:00 06/19/17 08:32 (Bicitra Liq) 30 ml RECORDS ASSOCIATE PO 06/17/17 18:30 06/20/17 18:29 Clindamycin Phosphate 600 mg/ Sodium Chloride 104 ml @ 208 mls/hr RECORDS ASSOCIATE IV 06/17/17 18:30 (NS Flush) 2 ml BID IV FLUSH 06/17/17 21:00 (NS Flush) 2 ml UNSCH PRN IV FLUSH 06/17/17 19:45 (Mylicon Chew) 80 mg QID PRN PO 06/17/17 19:45 (Motrin) 600 mg Q6H PRN PO 06/17/17 19:45 06/19/17 15:56 (Percocet 5-325 Mg) 1 tab Q4H PRN PO 06/17/17 19:45 06/18/17 23:23 (Percocet 5-325 Mg) 2 tab Q4H PRN PO 06/17/17 19:45 (Rachelle-Colace) 2 tab Q12H PRN PO 06/17/17 19:45 (Ambien) 5 mg HS PRN PO 06/17/17 19:45 (Zofran Inj) 4 mg Q6H PRN IV PUSH 06/17/17 19:45 (Synthroid) 200 mcg DAILY@0600 PO 06/18/17 06:00 06/19/17 05:45 (Synthroid) 25 mcg DAILY@0600 PO 06/18/17 06:00 06/19/17 05:46 Assessment/Plan Assessment and Plan POD #2 Anemia..will start fe once off the percocet Pre eclampsia still with borderline high BPs. Will follow Babies are premature and discussed stay close quarters. Dea Stiles MD Jun 19, 2017 16:26
[2017-06-19] MEDS ORDERED: OXYC1TAB63 PO (16:28)
[2017-06-19] MEDS ORDERED: IBUP-232 PO (16:28)
--- NOTE | 2017-06-19 16:28 | HHI.DCPOC ---
Discharge Care Plan Diagnosis: (1) 32 weeks gestation of (2) Twin gestation in third trimester (3) Elevated blood pressure affecting in third trimester, antepartum (4) delivery due to previous difficult delivery, delivered, current hospitalization Report Symptoms to Your Doctor -Temperature above 100.5 degrees -Redness, of incision or excessive or foul smelling drainage -Unusual pain or calf pain -Increased vaginal bleeding -Painful or difficulty urinating -Feelings of extreme sadness or anxiety after 2 weeks Goals to Promote Your Health * To prevent worsening of your condition and complications * To maintain your health at the optimal level Directions to Meet Your Goals Take your medications as prescribed Follow your dietary instruction Follow activity as directed Ensure plenty of rest for recovery Drink fluids for hydration Keep your appointments as scheduled Take your immunizations and boosters as scheduled If your symptoms worsen call your PCP, if no PCP go to Urgent Care Center or Emergency Room Smoking is Dangerous to Your Health. Avoid second hand smoke Call the 24-hour crisis hotline for domestic abuse at Dea Stiles MD Jun 19, 2017 16:28
[2017-06-19] MEDS: oxyCODONE/ACETAMINOPHEN 5 MG/325 MG TAB PO PRN (21:15)
[2017-06-20 04:00] VITALS: BP 132/82; PULSE 72; RESP 18; TEMP 98.7
[2017-06-20] MEDS: LEVOTHYROXINE SODIUM 100 MCG TAB PO SCH (06:13)
[2017-06-20] MEDS: LEVOTHYROXINE SODIUM 25 MCG TAB PO SCH (06:13)
[2017-06-20 07:50] VITALS: BP 141/95; PULSE 87; RESP 18; TEMP 97.7
[2017-06-20] MEDS: INSULIN NovoLIN REGULAR SUPPLEMENTAL SCALE SQ SCH ×2 (08:00→12:00)
[2017-06-20] MEDS: IBUPROFEN 600 MG TAB PO PRN (08:06)
[2017-06-20] MEDS: MULTIVIT/MIN/PREN/FOL AC/IRON PRENATAL TAB PO SCH (08:07)
[2017-06-20] MEDS: POLYETHYLENE GLYCOL 17 GM PKG PO SCH (08:07)
[2017-06-20] MEDS: DOCUSATE SODIUM 100 MG CAP PO SCH (08:07)
[2017-06-20] MEDS: CALCIUM CARBONATE 1.25 GM (CA 500 MG) TAB PO SCH (08:07)
== END 2017-06-20 15:40 | disposition home or self-care (01) | DRG 766 ==
LOC: HOBED 18:21 → H2EB 20:11 → H1EA 06-17 21:01
PROVIDERS: ADMIT Obstetrics & Gynecology; ATTEND Obstetrics & Gynecology
PROC: 4A1HXCZ Monitoring of Products of Conception, Cardiac Rate, External Approach (ICD-10-PCS; principal; 2017-06-17)
PROC: 10D00Z1 Extraction of Products of Conception, Low, Open Approach (ICD-10-PCS; 2017-06-17)
DX: O30.003 Twin pregnancy, unspecified number of placenta and unspecified number of amniotic sacs, third trimester (principal); Z37.2 Twins, both liveborn; E03.9 Hypothyroidism, unspecified; O99.284 Endocrine, nutritional and metabolic diseases complicating childbirth; O34.211 Maternal care for low transverse scar from previous cesarean delivery; O14.14 Severe pre-eclampsia complicating childbirth; O99.02 Anemia complicating childbirth; D64.9 Anemia, unspecified; M79.604 Pain in right leg; M79.605 Pain in left leg; O26.893 Other specified pregnancy related conditions, third trimester; Z3A.33 33 weeks gestation of pregnancy; Z23 Encounter for immunization
CPT/HCPCS: 76816; 76819; 76820; 80053; 80076; 80307; 81001; 82570; 82948; 83036; 83735; 84156; 84157; 84443; 84550; 85007; 85025; 85027; 86850; 86900; 86901; 86920; G0481; J0131; J0702; J1100; J1200; J1756; J2274; J2405; J2590; J2710; J3475; J7120